=== PATIENT | male | born 1945 | race Caucasian/White ===

== ENCOUNTER 2017-05-27 18:53 | Emergency (ER) | payer OTHER ==
[~2017-05-27] VITALS: Ht 165.1 cm; Wt 82.6 kg
[2017-05-27 21:29] VITALS: BP 102/73
== END 2017-05-27 21:29 | disposition left against medical advice (07) ==
LOC: ED 18:53
DX: Z53.21 Procedure and treatment not carried out due to patient leaving prior to being seen by health care provider (principal)